=== PATIENT | female | born 1985 | race African-American/Black ===

== ENCOUNTER 2019-07-26 08:46 | Inpatient (IN) ==
[2019-07-26] MEDS ORDERED: NS 1,000 ML IV ONE (08:55)
[2019-07-26] MEDS ORDERED: ASPIRIN PO ONE (08:56)
[2019-07-26 09:26] LABS: BASO# 0.01 X1000 (0.0-0.2); BASO% 0.1 % (0.0-0.8); EOS# 0.09 X1000 (0.0-0.7); EOS% 1.1 % (0.0-10.0); HEMATOCRIT 34.5 % (37.0-47.0); HEMOGLOBIN 11.5 g/dL (12.0-16.0); LYMPH# 1.11 X1000 (1.2-3.4); LYMPH% 13.4 % (20.5-51.1); MCHC 33.3 g/dL (33-37); MCV 102.1 FL (81-99); MONO# 0.55 X1000 (0.11-0.59); MONO% 6.7 % (1.7-9.3); MPV 10.2 FL (7.4-10.4); NEUT% 78.7 % (42.2-75.2); PLT 152 X1000 (130-400); RBC 3.38 XMIL (4.2-5.4); RDW 12.6 % (11.5-14.5); WBC 8.26 X1000 (4.8-10.8)
--- NOTE | 2019-07-26 09:26 | PROVIDER DOCUMENTATION ---
HPI-General Adult - General Chief Complaint: Chest Pain Stated Complaint: Chest pain Time Seen by Provider: 07/26/19 08:59 Source: patient Allergies/Adverse Reactions: Patient Allergies Allergy/AdvReac Type Severity Reaction Status Date / Time cephalexin monohydrate * Allergy ITCHING Verified 07/26/19 09:34 [From Keflex] codeine Allergy ITCHING Verified 07/26/19 09:34 Home Medications: Home Medication List Medication Instructions Recorded Confirmed Last Taken Type Hydrocodone/Acetaminophen [[place] 1 tab PO Q8H PRN PRN 04/17/16 07/26/19 07/26/19 History 10-325 Tablet] Gabapentin 300 mg PO Q8HR 05/06/18 07/26/19 07/26/19 History Lisinopril 20 mg PO DAILY 05/06/18 07/26/19 07/26/19 History Pantoprazole Sodium 40 mg PO DAILY 05/06/18 07/26/19 07/25/19 History Cyclobenzaprine [Flexeril] 1 tab PO BID 07/26/19 07/26/19 07/24/19 History Nitrofurantoin [place]/Macrocryst 1 tab PO BID 07/26/19 07/26/19 07/26/19 History [Macrobid] Potassium Chloride E.r. [Klor-Con] 1 tab PO BID 07/26/19 07/26/19 07/25/19 History - History of Present Illness -Gen Adult Nature of Presenting Problems: Pt. is 34 yof that presents with c/o CP that began on Sun. Pt. reports nausea at time of onset and diaphoresis but not at time of exam. Pt. reports SOB upon standing. Pt. reports her lower extremities are cold feeling and she denies any other complaints. Location of Pain/Injury: reports: chest. denies: none, head, face, mouth, neck, upper extremity, hand(s), abdomen, back, pelvis, genitalia, lower extremity, feet, upper body, lower body, generalized, other Pain Radiation: reports: no radiation. denies: arm(s), back, buttocks, chest, epigastric, feet, groin, jaw, flank (L), legs (lower), LLQ, LUQ, neck, periumbilical, flank (R), RLQ, RUQ, shoulder(s), scapula, scrotal, sternal notch, suprapubic, legs (upper), urethral, vaginal, other Quality of Pain: reports: pressure, tightness. denies: aching, indigestion, throbbing Severity: reports: mild. denies: moderate, severe Onset/Duration: reports: abrupt, 3 days ago Timing: reports: still present. denies: improving, intermittent, getting worse Context/Activities at Onset: reports: none. denies: light activity, moderate activity, vigorous activity, recent emotional stress, recent physical stress, recent trauma history, possible bad food, cold exposure, eating, out of country travel, rest, sleep, sexual activity, other Modifying Factors: improves with: nothing Associated Symptoms: reports: chest pain, shortness of breath. denies: denies symptoms, anxiety, arm pain, back/neck pain, constipation, cough, diaphoresis, diarrhea, dizziness, EENT symptoms, fatigue, fever/chills, genitourinary problems, headaches, heartburn, joint pain, loss of appetite, malaise, muscle aches, sinus congestion/drainage, nausea, rash, seizure, sensory/motor loss, pain with inspiration, swelling/mass in abdomen, syncope, vomiting, weakness, trouble walking, other Similar Symptoms Previously?: Yes Recently seen or treated by another doctor?: No Review of Systems - Adult - REVIEW OF SYSTEMS - ADULT Constitutional: reports: no symptoms reported Eyes: reports: no symptoms reported Ears, Nose, Mouth & Throat: reports: no symptoms reported Cardiovascular: reports: see HPI, chest pain. denies: heart murmur, orthopnea, syncope Respiratory: reports: see HPI, shortness of breath. denies: cough, pleurisy, wheezing Gastrointestinal: reports: no symptoms reported Genitourinary: reports: no symptoms reported Musculoskeletal: reports: no symptoms reported Integumentary: reports: no symptoms reported Neurological: reports: no symptoms reported Psychiatric: reports: no symptoms reported Past History - Adult - PAST MEDICAL HISTORY-ADULT Review of Records: reports: Old Records Reviewed, Nursing Assessment Review, Medications Reviewed, Social history reviewed & non-contributory. Major Childhood Illnesses: reports: denies history Cardiovascular: reports: HTN Respiratory: reports: denies history Gastrointestinal: reports: denies history Obstetrical/Gynecological: reports: denies history Genitourinary: reports: denies history Musculoskeletal: reports: denies history Neurological: reports: denies history Endocrine/Immune: reports: denies history Other Conditions: reports: denies history - PRIOR SURGERIES/PROCEDURES Surgical/Procedure History: reports: - IMMUNIZATION STATUS Childhood Immunizations: See Nurse Assessment Flu Vaccine: See Nurse Assessment - FAMILY HISTORY Family History: HTN - SOCIAL HISTORY Smoking: denies Physical Exam-General - PHYSICAL EXAM-ADULT Initial Vital Signs Reviewed: Yes - CONSTITUTIONAL General Appearance: alert, no apparent distress, obese. negative: thin, anxious, obtunded, combative - EYES Eyes: PERRL/EOMI, pink conjunctivae - HEAD, EARS, NOSE, MOUTH & THROAT HENMT: normocephalic/atraumatic, moist mucous membranes - NECK Neck: non-tender, full range of motion, supple, normal inspection - RESPIRATORY Respiratory: lungs clear, normal breath sounds - CARDIOVASCULAR Cardiovascular: regular rate, rhythm, no edema, tachycardia. negative: friction rub, irregularly irregular - GASTROINTESTINAL (ABDOMEN) Abdominal Exam: normal bowel sounds, non tender, soft - LYMPHATIC Lymphatic: no adenopathy - MUSCULOSKELETAL Back Exam: normal inspection, no CVA tenderness, no vertebral tenderness Extremity: normal range of motion, non-tender, normal gait, normal inspection. negative: erythema, inflammation, swelling, tenderness Peripheral Pulses: radial (R): 2+, radial (L): 2+ - SKIN Integumentary: normal color, normal turgor, warm/dry - NEUROLOGIC Neurologic: grossly normal, no motor/sensory deficits - PSYCHIATRIC Psych/Mental Status: normal mood/affect, normal thought content, normal thought process, oriented x 3. negative: anxious, paranoid, tearful Progress - PLAN OF CARE/RESULTS Progress/Plan/Lab Results: Vital Signs - 8 hr 07/26/19 08:53 Temperature 98.1 F Pulse Rate 104 H Respiratory Rate 19 Blood Pressure 88/57 O2 Sat by Pulse Oximetry 89 L Orders Category Date Time Status Cardiac Monitoring DIRECTED Care 07/26/19 08:57 Active Oxygen Therapy- ED Nursing DIRECTED Care 07/26/19 08:57 Active Saline Loc NOW Care 07/26/19 08:57 Active CHEST-2 VIEWS [RAD] Stat Exams 07/26/19 08:57 Ordered ALCOHOL BLOOD Stat Lab 07/26/19 09:16 Ordered CBC WITH ELECTRONIC DIFF [HEME] Stat Lab 07/26/19 09:16 Ordered CK PROFILE [SP CHEM] Stat Lab 07/26/19 09:16 Ordered COMPREHENSIVE METABOLIC PANEL [CHEM] Stat Lab 07/26/19 09:16 Ordered D-DIMER [COAG] Stat Lab 07/26/19 09:16 Ordered LACTATE, PLASMA [CHEM] Stat Lab 07/26/19 09:22 Ordered MAGNESIUM [CHEM] Stat Lab 07/26/19 09:16 Ordered PRO B-NATRIURETIC PEPTIDE Stat Lab 07/26/19 09:16 Ordered PROTIME WITH INR [COAG] Stat Lab 07/26/19 09:16 Ordered PTT [COAG] Stat Lab 07/26/19 09:16 Ordered TROPONIN T Stat Lab 07/26/19 09:16 Ordered 0.9% Sodium Chloride Inj [Ns] 1,000 ml Med 07/26/19 08:55 Active IV 999 mls/hr Aspirin Med 07/26/19 08:56 Discontinued 325 mg PO NOW ONE CP/SOB/Palp >45 yrs of Age Stat Oth 07/26/19 08:56 Ordered EKG [EKG] Stat Ther 07/26/19 08:55 Ordered Laboratory Tests 07/26/19 07/26/19 07/26/19 09:09 09:09 09:09 WBC 8.26 RBC 3.38 L Hgb 11.5 L Hct 34.5 L MCV 102.1 H MCH 34.0 H MCHC 33.3 RDW Std Deviation 12.6 Plt Count 152 MPV 10.2 Immature Gran % (Auto) 0.0 Neut % (Auto) 78.7 H Lymph % (Auto) 13.4 L [place] % (Auto) 6.7 Eos % (Auto) 1.1 Baso % (Auto) 0.1 Immature Gran # (Auto) 0.00 Neut # (Auto) 6.50 Lymph # (Auto) 1.11 L [place] # (Auto) 0.55 Eos # (Auto) 0.09 Baso # (Auto) 0.01 PT INR PTT (Actin FS) D-Dimer, Quantitative Sodium 133 L Potassium 5.2 H Chloride 97 L Carbon Dioxide 13 L Anion Gap 23 BUN 47 H Creatinine 4.8 H Estimated GFR/1.73 m2 12 BUN/Creatinine Ratio 10 Glucose 86 Calculated Osmolality 278 Calcium 8.6 L Magnesium 1.8 Total Bilirubin 0.23 AST 154 H ALT 56 H Alkaline Phosphatase 79 Creatine Kinase 3496 H Creatine Kinase Index 1.6 CK-MB (CK-2) 56.09 H Troponin T [id number] Pept 186 H Total Protein 7.9 Albumin 4.2 Globulin 3.7 Albumin/Globulin Ratio 1.1 Plasma Lactate Plasma/Serum Ethyl Alc 07/26/19 07/26/19 07/26/19 09:09 09:09 09:09 WBC RBC Hgb Hct MCV MCH MCHC RDW Std Deviation Plt Count MPV Immature Gran % (Auto) Neut % (Auto) Lymph % (Auto) [place] % (Auto) Eos % (Auto) Baso % (Auto) Immature Gran # (Auto) Neut # (Auto) Lymph # (Auto) [place] # (Auto) Eos # (Auto) Baso # (Auto) PT 13.9 INR 1.06 PTT (Actin FS) 33.0 D-Dimer, Quantitative 1.11 H Sodium Potassium Chloride Carbon Dioxide Anion Gap BUN Creatinine Estimated GFR/1.73 m2 BUN/Creatinine Ratio Glucose Calculated Osmolality Calcium Magnesium Total Bilirubin AST ALT Alkaline Phosphatase Creatine Kinase Creatine Kinase Index CK-MB (CK-2) Troponin T 0.012 Etg-B-[id number] Pept Total Protein Albumin Globulin Albumin/Globulin Ratio Plasma Lactate Plasma/Serum Ethyl Alc 07/26/19 09:09 WBC RBC Hgb Hct MCV MCH MCHC RDW Std Deviation Plt Count MPV Immature Gran % (Auto) Neut % (Auto) Lymph % (Auto) [place] % (Auto) Eos % (Auto) Baso % (Auto) Immature Gran # (Auto) Neut # (Auto) Lymph # (Auto) [place] # (Auto) Eos # (Auto) Baso # (Auto) PT INR PTT (Actin FS) D-Dimer, Quantitative Sodium Potassium Chloride Carbon Dioxide Anion Gap BUN Creatinine Estimated GFR/1.73 m2 BUN/Creatinine Ratio Glucose Calculated Osmolality Calcium Magnesium Total Bilirubin AST ALT Alkaline Phosphatase Creatine Kinase Creatine Kinase Index CK-MB (CK-2) Troponin T [id number]-Ucwkvkevzmp Pept Total Protein Albumin Globulin Albumin/Globulin Ratio Plasma Lactate 0.9 Plasma/Serum Ethyl Alc Discussed results and plan of care with patient. Patient agrees with plan and verbalizes understanding. Result Diagrams: 07/26/19 09:09 07/26/19 09:09 - EKG 1 Time of EKG reading by physician:: 08:54 EKG Read and Signed by:: Sage Villa EKG Interpretation (*Must complete 3 of following elements*): Abnormal Rate: 104 Rhythm: ST with PAC's CO Interval: normal - XRAY 1 XRAY Study: Chest XRAY Interpretation: JULY Eric) - CONSULTS/PCP/HOSPITALIST Notification #1 *Consult/PCP/Hospitalist*: [facility] for Dr. Lawrence Time Discussed: 10:28 Reason/Comments: Admission Consult Disposition: Will see in ED, Admit Departure - Departure Date of Disposition Decision: 07/26/19 Time of Disposition Decision: 10:17 DIAGNOSIS: Elevated d-dimer, Chronic anemia Acute renal failure Qualifiers: Acute renal failure type: unspecified Qualified Code(s): N17.9 - Acute kidney failure, unspecified Rhabdomyolysis Qualifiers: Rhabdomyolysis type: non-traumatic Qualified Code(s): M62.82 - Rhabdomyolysis Disposition: ADMITTED INPATIENT 09 Certified Medical Emergency: Emergent Condition: Stable Referrals and Follow-Ups: None,PCP [Primary Care Provider] - - Critical Care Note This patient required my direct & personal management of CC.: No Attestation - Physician/ SAYDA Attestation Patient care was provided by Advanced Practice Provider:: Yes Advanced Practice Provider:: Dion Torres Advanced Practice Provider documentation review:: The Mid-level provider documentation, treatment plan and medical decision making was reviewed by the physician who agrees with all treatment and medical decision making by the P. The physician spent face to face time with patient:: No Advanced Practice Provider documentation review:: Supervising physician onsite and consulted in the evaluation and care of this patient. The physician did not have a face to face encounter with the patient.
[2019-07-26 09:35] LABS: INR 1.06; PROTIME 13.9 Seconds (11.0-16.0)
--- NOTE | 2019-07-26 09:45 | EKG Report ---
Test Performed on : 07/26/2019 08:52:45 AM Test Reason : cp Blood Pressure : / mmHG Vent. Rate : 104 BPM Atrial Rate : 104 BPM P-R Int : 152 ms QRS Dur : 084 ms QT Int : 350 ms P-R-T Axes : 052 025 032 degrees QTc Int : 460 ms Sinus tachycardia. with premature atrial complexes. Possible Left atrial enlargement Borderline ECG When compared with ECG of 10-MAY-2019 06:26, (Unconfirmed) premature atrial complexes. are now present Unconfirmed Result
[2019-07-26 09:50] LABS: ALB/GLOB RATIO 1.1; ALBUMIN 4.2 g/dL (3.5-5.0); CALCIUM 8.6 mg/dL (8.8-10.2); CREATININE 4.8 mg/dL (0.5-0.9); MAGNESIUM 1.8 mg/dL (1.5-2.7); POTASSIUM 5.2 mmol/L (3.5-5.1); TOTAL BILIRUBIN 0.23 mg/dL (0.20-1.00); TOTAL PROTEIN 7.9 g/dL (6.3-8.3)
[2019-07-26 10:13] LABS: CK INDEX 1.6 (0.0-2.5); CK-MB 56.09 ng/mL (0.0-5.0)
[2019-07-26 10:22] LABS: URINE SOURCE CATH
[2019-07-26 10:40] LABS: BILIRUBIN URINE NEGATIVE (NEGATIVE); BLOOD URINE MODERATE (NEGATIVE); COLOR YELLOW; GLUCOSE URINE NEGATIVE (NEGATIVE); KETONE URINE NEGATIVE (NEGATIVE); LEUKOCYTES URINE SMALL (NEGATIVE); NITRITE URINE NEGATIVE (NEGATIVE); PH URINE 5.5; PROTEIN URINE 100 mg/dL (NEGATIVE); SP GRAVITY URINE 1.026; TURBIDITY URINE HAZY (CLEAR); UROBILINOGEN URINE NORMAL (NORMAL)
[2019-07-26 10:41] LABS: UR EPITHELIAL CELLS <10 /HPF (<10); URINE BACTERIA NEGATIVE /HPF; URINE WBC <10 /HPF (<10)
[2019-07-26] MEDS ORDERED: NORCO-7.5 PO PRN (11:23)
[2019-07-26] MEDS ORDERED: ZOFRAN IV PRN (11:23)
[2019-07-26] MEDS ORDERED: TYLENOL PO PRN (11:23)
[2019-07-26] MEDS ORDERED: LEVAQUIN 500 MG/D5W 500 MG/100 ML IVPB IV ONE (11:35)
--- NOTE | 2019-07-26 11:36 | Diag Imaging Result Doc PS360 ---
EXAM: CHEST-2 VIEWS INDICATION: cp TECHNIQUE: 2 views COMPARISON: 05/09/2019 FINDINGS: There is stable scoliosis. The lungs are grossly clear. There is no discrete pleural fluid collection or pneumothorax. The cardiomediastinal silhouette and central vasculature are grossly unremarkable. IMPRESSION: No evidence of acute pathology by plain radiograph. Electronically signed by Berto Jackson 07/26/2019 11:34 AM
[2019-07-26] MEDS: HEPARIN SUBQ SCH ×2 (12:24→19:55)
[2019-07-26] MEDS: NICODERM PATCH TD SCH (12:24)
[2019-07-26] MEDS: NS 1,000 ML IV SCH ×2 (12:24→19:55)
[2019-07-26 12:35] LABS: UR AMPHETAMINES QUAL NONE DETECTED (NONE DETECT); UR BARBITUATES QUAL NONE DETECTED (NONE DETECT); UR BENZODIAZEPIN QUAL NONE DETECTED (NONE DETECT); UR CANNABINOIDS QUAL NONE DETECTED (NONE DETECT); UR COCAINE QUAL NONE DETECTED (NONE DETECT); UR METHADONE QUAL NONE DETECTED (NONE DETECT); UR OPIATES QUAL PRESUMPTIVE POSITIVE (NONE DETECT); UR OXYCODONE QUAL NONE DETECTED (NONE DETECT); UR PCP QUAL NONE DETECTED (NONE DETECT)
[2019-07-26 12:40] LABS: UR CREAT RANDOM 157.5 mg/dL (11-20); UR PROT RANDOM 145.7 mg/dL
[2019-07-26] MEDS ORDERED: NEURONTIN PO SCH (13:00)
[2019-07-26] MEDS ORDERED: ATIVAN IV PRN (13:28)
[2019-07-26 13:56] LABS: URINE SOURCE CATH
--- NOTE | 2019-07-26 14:07 | Diag Imaging Result Doc PS360 ---
EXAM: US RENAL 2 (RETROPER) COMPLETE INDICATION: Acute Renal Failure TECHNIQUE: COMPARISON: None. FINDINGS: The kidneys are grossly normal in echotexture with no discrete renal mass or hydronephrosis. The right kidney measures 13.4 cm and the left kidney measures 13.5 cm in the greatest longitudinal axes. The right renal cortex measures 1.1 cm and the left renal cortex measures 1.0 cm in thickness. There is a Burden catheter in the urinary bladder and the bladder is nondistended. IMPRESSION: Unremarkable renal ultrasound. Electronically signed by Berto Jackson 07/26/2019 2:05 PM
[2019-07-26 14:09] LABS: BILIRUBIN URINE NEGATIVE (NEGATIVE); BLOOD URINE LARGE (NEGATIVE); COLOR YELLOW; GLUCOSE URINE NEGATIVE (NEGATIVE); KETONE URINE NEGATIVE (NEGATIVE); LEUKOCYTES URINE TRACE (NEGATIVE); NITRITE URINE NEGATIVE (NEGATIVE); PH URINE 5.5; PROTEIN URINE 100 mg/dL (NEGATIVE); SP GRAVITY URINE 1.024; TURBIDITY URINE CLEAR (CLEAR); UROBILINOGEN URINE NORMAL (NORMAL)
[2019-07-26 14:11] LABS: UR EPITHELIAL CELLS <10 /HPF (<10); URINE BACTERIA NEGATIVE /HPF; URINE WBC <10 /HPF (<10)
--- NOTE | 2019-07-26 15:05 | Diag Imaging Result Doc PS360 ---
EXAM: LUNG SCAN / VQ INDICATION: SOB/elevated d-dimer TECHNIQUE: 36.6 mCi of aerosolized technetium 99 DTPA was administered for the ventilation portion of the scan. 5.3 mCi of IV technetium 99 MAA was administered for the perfusion portion of the scan. COMPARISON: No prior V/Q scan is available for comparison. FINDINGS: There is no definite matched or unmatched perfusion defects are identified. The ventilation portion of the scan is unremarkable as well. IMPRESSION: Negative VQ scan. Electronically signed by Berto Jackson 07/26/2019 3:03 PM
--- NOTE | 2019-07-26 15:37 | HISTORY AND PHYSICAL ---
PRIMARY CARE PHYSICIAN: Dr. Jalen Wu. CHIEF COMPLAINT: Lower back pain and unable to walk. HISTORY OF PRESENT ILLNESS: Ms. Rooney is a 34-year-old female who states that about 1 to 2 months ago, she noticed that she was having difficulty going to the restroom. She stated this has persisted over the past few months where it has become worse and worse. She started having some pain in her lower back. She went to go see her tenter, Dr. Wu who is in [place] I believe. This was on Sunday. He diagnosed her with an acute UTI, started her on nitrofurantoin. She stated that she started taking her medication. She has been unable to get out of the bed since Sunday. She has been having to crawl to go to the bathroom or to go anywhere. She has not been using the bathroom very much. She has only been drinking about 3 glasses of water a day. The patient does report some nausea with this pain. Denies any significant chest pain; however, looking at the ER report, the patient was having some chest pain on arrival to the ER. The patient also states she was having some shortness of breath when standing when she arrived to the ER. She is not having shortness of breath at this present time. The patient denies any fevers or chills, any headaches, any decreased appetite, any problem with her bowels, any vomiting, any blood in her stools, any constipation or diarrhea. LABORATORY FINDINGS: In the ER show a hemoglobin of 11.5 and hematocrit of 34.5. D-dimer of 1.11. Sodium of 133, potassium of 5.2. BUN of 47, a creatinine of 4.8, GFR of 12, creatine kinase of 3496, CK-MB of 56.09. PAST MEDICAL HISTORY: Hypertension, smoking, alcohol abuse. PAST SURGICAL HISTORY: x3. SOCIAL HISTORY: Patient lives with her sister in [place]. She is unemployed. States she smokes a half pack of cigarettes per day for greater than 15 years. The patient states she drinks about a 5th of alcohol daily. States she has not drink alcohol since Sunday. She denies any drug abuse. ALLERGIES: Codeine and Keflex. MEDICATIONS: 1. [place] 10/325 one tablet p.o. q.8 hours p.r.n. 2. Lisinopril 20 mg p.o. daily. 3. Protonix 40 mg p.o. daily. 4. Gabapentin 300 mg p.o. q.8 hours. 5. Macrobid 100 mg p.o. b.i.d. 6. Klor-Con 20 mEq 2 tablets in the a.m., 1 tab q.p.m. 7. Flexeril 10 mg p.o. b.i.d. LABS AND DIAGNOSTICS: White blood cell count 8.26, red blood cell count 3.38, hemoglobin 11.5, hematocrit 34.5, MCV 102.1, MCH 34, MCHC 33.3, RDW of 12.6, platelet count 152,000. PT 13.9, INR 1.06, PTT 33.0. D-dimer 1.11. Sodium 133, potassium 5.2, chloride 97, carbon dioxide 13, anion gap 23, BUN is 47, creatinine 4.8, estimated GFR 12, glucose 86, calcium 8.6, magnesium 1.8. Total bilirubin 0.23, AST 154, ALT 56, alkaline phosphatase 79. Creatine kinase 3496. Creatine kinase index 1.6. CK-MB 56.09. Troponin T 0.012. ProBNP 186. Total protein 7.9, albumin 4.2. Plasma lactate 0.9. Urinalysis pH 5.5, urine specific gravity 1.026, urine protein 100, positive for blood, a small amount of leukocytes, red blood cell count 10 to 20, white blood cell count less than 10, negative for bacteria, negative for nitrates. Plasma alcohol level negative. Chest x-ray shows no evidence of acute pathology. REVIEW OF SYSTEMS: A twelve point review of systems was obtained and all are negative except what is stated above in the HPI. PHYSICAL EXAMINATION: VITAL SIGNS: Temperature 98.1 degrees, pulse rate 103, respiratory rate 18, blood pressure 88/50, O2 saturation 100 on room air, weight 206 pounds, height 5 feet 4 inches. GENERAL: This is a 34-year-old female. She is lying in the ER stretcher. She is in no acute distress at present time. She is well nourished and well developed. HEENT: Atraumatic, normocephalic. Pupils equal, round, reactive to light. Sclerae icteric. Mucous membranes are dry. NECK: Supple. No lymphadenopathy. Trachea is midline. No JVD. No thyromegaly. No bruits. CV: No murmurs, gallops, or rubs appreciated. Regular rate and rhythm. Normal sinus tach on the monitor. RESPIRATORY: Lung sounds are clear throughout with equal chest excursion. Respirations are nonlabored with no accessory muscle usage. GI: Abdomen is round, nondistended, is nontender. Bowel sounds are present x4. NEUROLOGIC: Cranial nerves 2-12 are intact. The patient is awake, alert, oriented, able to follow all commands appropriately. MUSCULOSKELETAL: Full distal strength noted. No abnormalities or deformities. EXTREMITIES: No clubbing, no cyanosis, no edema. DP and PT pulses are present and palpable. SKIN: Warm, dry, and intact. No rashes or bruises. There is a very small pink area noted to the left breast by the areola. The patient stated that it was a blackhead that she popped. The area is closed. Has a scabbed area noted over the pink area. It is not draining. ASSESSMENT AND PLAN: 1. Acute renal failure. We are going to admit this patient to the ICU unit. We are going to start this patient on IV fluid hydration. She was given 1 L bolus in the ER. We are going to give her normal saline at 125 mL an hour. We will recheck all her labs in the morning. We are going to do a renal ultrasound and urine creatinine, urine protein, urine sodium studies. 2. Rhabdomyolysis. We will start this patient on IV fluid hydration and repeat labs in the morning. We are also going to trend CK and troponin levels. The patient was given a 1 L bolus in the ER. 3. Urinary tract infection. We have sent a urine off for culture. The patient was on nitrofurantoin at home. We are starting this patient on Levaquin per renal dose. Going to go ahead and place a Burden catheter in the patient. The patient has been able to void very much. Likely this is due to her acute renal failure and dehydration. We are going to give this patient IV fluid hydration and start her on some IV antibiotics. We will remove the Burden catheter once the patient is urinating better. 4. ETOH abuse. I have started this patient on a banana bag daily, and I placed in the ICU unit for observation. The patient states she is not drank since Sunday. Do not know if the patient will have withdrawal symptoms. We will start this patient on medication if she does start having withdrawal symptoms. 5. Nicotine dependency. The patient states she does smoke half a pack of cigarettes per day greater than 15 years. I have started her on a nicotine patch and provided smoking cessation information. 6. Hypertension. The patient does take lisinopril at home. Right now she is dehydrated and she is having some hypotension. We are going to hold off on any blood pressure medication at this time and hold off on her lisinopril because of her acute renal function failure. 7. Chronic pain. The patient does take Avoca at home for her back pain and Flexeril. I am going to hold off on her Flexeril and Avoca. I have started her on Morphine for pain. 8. Gastrointestinal prophylaxis. I have started her on some Prilosec daily. 9. Deep venous thrombosis prophylaxis. The patient did have a slightly elevated D-dimer. We are going to do a V/Q lung scan on her to rule her out for PE. She is not short of breath at this time. She does not have any edema to her lower extremities. I have started her on heparin subcutaneous q.8 hours per protocol. This should cover for DVT prophylaxis. If she does have a PE, we will start her on a heparin drip. We have admitted this patient to the ICU unit as above. We started her on IV fluid hydration. We have started her on a banana bag daily. We will monitor her for withdrawal symptoms in the ICU. If need to we will start her on some medication for that. We are also going to give her some IV antibiotics for her urinary tract infection. She has a urine culture pending. I have ordered blood cultures. We are going to repeat her labs in the morning. We are also going to trend her CK and troponins. I am going to place a Burden in her and I have started her on a renal diet. We will observe her closely. All further recommendations pending hospital coarse. Dictated by DONOVAN Heart for Juan Head MD cc: Juan Head MD [facility]
[2019-07-26] MEDS: MORPHINE IV PRN ×2 (16:10→22:41)
[2019-07-26 18:07] LABS: ALB/GLOB RATIO 0.9; ALBUMIN 3.7 g/dL (3.5-5.0); CALCIUM 8.3 mg/dL (8.8-10.2); CREATININE 3.8 mg/dL (0.5-0.9); POTASSIUM 4.1 mmol/L (3.5-5.1); TOTAL BILIRUBIN 0.22 mg/dL (0.20-1.00); TOTAL PROTEIN 7.7 g/dL (6.3-8.3)
[2019-07-26 18:15] LABS: CK INDEX 1.3 (0.0-2.5); CK-MB 39.1 ng/mL (0.0-5.0)
[2019-07-27 01:35] LABS: CK INDEX 1.3 (0.0-2.5); CK-MB 26.35 ng/mL (0.0-5.0)
[2019-07-27] MEDS: MORPHINE IV PRN ×4 (03:41→20:07)
[2019-07-27] MEDS: HEPARIN SUBQ SCH ×2 (03:41→15:43)
[2019-07-27] MEDS: NS 1,000 ML IV SCH ×4 (03:46→23:23)
--- NOTE | 2019-07-27 08:05 | PROGRESS NOTE ---
DATE: 07/27/2019 SUBJECTIVE: The patient is sleepy but arousable. She is oriented. She is complaining of poor sensation, mostly in her lower extremities, left lower extremity mostly. She was recently evaluated by her doctor and she was started on treatment for a UTI with nitrofurantoin. Apparently, she has not been able to get out of bed for the past 3 days and having to crawl to go to the bathroom or to go anywhere, decreased urine output. She was admitted in the ICU. She does have an acute renal failure, rhabdomyolysis. She has a history of alcohol abuse, tobacco abuse, hypertension, chronic pain. OBJECTIVE: Vital Signs: Temperature 98.4 degrees, pulse 107, respiratory rate 15, blood pressure 81/39, oxygen saturation 100% on room air. HEENT: Head normocephalic. No trauma. PERRLA. Neck: Supple. No JVD. Central trachea. Chest: Clear to auscultation. No wheezing. No rales. Abdomen: Soft. Some generalized tenderness to palpation, mostly periumbilical area. Extremities: It is really painful at the level of the thighs and she is complaining of some burning sensation mostly in her left lower extremity, which is apparently chronic. Neurological Examination: She is alert. She is oriented x3. She is tolerating p.o. and following commands. Laboratory: CK level decreased from 3496 to 2851 and at midnight, was around 1981, lab work is pending but the creatinine recheck yesterday improved from 4.8 at 9 a.m. to 3.8 at 5 p.m. Urine output has been good. It is reported 2.1 L in the past 24 hours. ASSESSMENT AND PLAN: 1. Acute renal failure. Continue with intravenous fluids. Continue to monitor the BUN and creatinine. Pending lab work this morning. She seems to be making good urine and the creatinine has been decreasing. 2. Rhabdomyolysis. Continue with intravenous fluids. CK level trending down. 3. Urinary tract infection. Negative cultures so far. Continue with Levaquin renally dosed. 4. Volume depletion, severe dehydration. She seems to be a little bit better right now. Continue with intravenous fluids. 5. Alcohol abuse. We have started this patient on a banana bag daily. Intensive care unit for observation. As per the patient, she stopped drinking last Sunday. She took a pint of vodka. We will monitor for withdrawal symptoms. 6. Hypertension. Actually, this patient has been hypotensive due during this hospitalization. When she is sleeping, the blood pressure dropped to the 80s and sometimes 70s but when she is awake, her blood pressure goes up to the 100s immediately. Since her kidney function is getting better and she is not having symptoms of hypotension, I will monitor for now. I will go and use pressors as needed. 7. Chronic pain. Apparently, this patient takes [place] at home as needed. 8. Peripheral neuropathy. This patient takes gabapentin at home as well. All those medication have been on hold. 9. Gastrointestinal prophylaxis. Prilosec daily. 10. Deep vein thrombosis prophylaxis. She had a slightly elevated D-dimer. V/Q scan has been negative. She does not have any swelling at the level of the lower extremities. I will go with heparin every 12 hours. I will not use sequential compression devices because of her severe pain upon palpation at the level of the lower extremities. 11. Elevated liver function tests, trending down, likely due to severe dehydration but this could be multifactorial. She has a history of alcohol abuse. CRITICAL CARE TIME: 30 minutes. cc: Juan Head MD MTDD
[2019-07-27 08:15] LABS: EOS# 0.07 X1000 (0.0-0.7); EOS% 1.5 % (0.0-10.0); HEMATOCRIT 31.1 % (37.0-47.0); HEMOGLOBIN 10.2 g/dL (12.0-16.0); LYMPH# 0.89 X1000 (1.2-3.4); LYMPH% 19.5 % (20.5-51.1); MCH 34.1 PG (27-31); MCHC 32.8 g/dL (33-37); MONO# 0.45 X1000 (0.11-0.59); MONO% 9.9 % (1.7-9.3); NEUT# 3.15 X1000 (1.4-6.5); NEUT% 69.1 % (42.2-75.2); PLT 171 X1000 (130-400); RBC 2.99 XMIL (4.2-5.4); RDW 12.6 % (11.5-14.5); WBC 4.56 X1000 (4.8-10.8)
[2019-07-27] MEDS: PRILOSEC PO SCH (08:22)
[2019-07-27] MEDS: NICODERM PATCH TD SCH (08:22)
[2019-07-27] MEDS: FLEXERIL PO SCH ×2 (08:22→20:07)
[2019-07-27 08:45] LABS: ALB/GLOB RATIO 0.9; ALBUMIN 3.5 g/dL (3.5-5.0); CALCIUM 7.5 mg/dL (8.8-10.2); CREATININE 1.3 mg/dL (0.5-0.9); MAGNESIUM 1.6 mg/dL (1.5-2.7); POTASSIUM 4.6 mmol/L (3.5-5.1); TOTAL BILIRUBIN 0.23 mg/dL (0.20-1.00); TOTAL PROTEIN 7.2 g/dL (6.3-8.3)
--- NOTE | 2019-07-27 08:46 | Diag Imaging Result Doc PS360 ---
EXAM: CHEST-PORTABLE INDICATION: dyspnea TECHNIQUE: One view COMPARISON: 07/26/2019 FINDINGS: Inspiration is suboptimal. The lungs are grossly clear. There is no discrete pleural fluid collection or pneumothorax. The cardiomediastinal silhouette and central vasculature are grossly unremarkable. IMPRESSION: Lower lung volumes but stable chest, otherwise. Electronically signed by Berto Jackson 07/27/2019 8:43 AM
[2019-07-27 08:50] LABS: IRON SATURATION 31 %; TIBC 226 ug/dL; TOTAL IRON 70 ug/dL (49-151); UNBOUND IRON 156 ug/dL (112-346)
[2019-07-27] MEDS ORDERED: M.V.I.-12 10 ML, FOLIC ACID 1 MG, MAGNESIUM SULFATE 1 GM, THIAMINE 100 MG in NS 1,000 ML IV SCH (09:00)
[2019-07-27 10:44] LABS: CK INDEX 1.1 (0.0-2.5); CK-MB 16.92 ng/mL (0.0-5.0)
[2019-07-28] MEDS: MORPHINE IV PRN ×3 (00:52→12:17)
[2019-07-28] MEDS: HEPARIN SUBQ SCH ×2 (04:33→15:44)
[2019-07-28] MEDS: NS 1,000 ML IV SCH ×3 (04:34→21:29)
[2019-07-28 06:36] LABS: BASO# 0.01 X1000 (0.0-0.2); BASO% 0.3 % (0.0-0.8); EOS# 0.07 X1000 (0.0-0.7); EOS% 1.9 % (0.0-10.0); HEMOGLOBIN 9.9 g/dL (12.0-16.0); LYMPH# 0.92 X1000 (1.2-3.4); LYMPH% 24.9 % (20.5-51.1); MCH 33.7 PG (27-31); MONO# 0.35 X1000 (0.11-0.59); MONO% 9.5 % (1.7-9.3); MPV 9.7 FL (7.4-10.4); NEUT# 2.34 X1000 (1.4-6.5); NEUT% 63.4 % (42.2-75.2); PLT 223 X1000 (130-400); RBC 2.94 XMIL (4.2-5.4); RDW 12.2 % (11.5-14.5); WBC 3.69 X1000 (4.8-10.8)
[2019-07-28 06:47] LABS: AGAP 10; ALB/GLOB RATIO 0.9; ALBUMIN 3.4 g/dL (3.5-5.0); ALKALINE PHOSPHATASE 70 U/L (32-104); BUN 17 mg/dL (8-22); CALCIUM 8.1 mg/dL (8.8-10.2); CHLORIDE 110 mmol/L (98-107); CK PROFILE 743 U/L (24-173); COSMO 272; CREATININE 0.5 mg/dL (0.5-0.9); ESTIMATED GFR > 60; GLUCOSE 79 mg/dL (70-104); GOT 96 U/L (10-30); GPT 40 U/L (10-36); MAGNESIUM 1.4 mg/dL (1.5-2.7); PHOSPHORUS 1.3 mg/dL (2.7-4.5); POTASSIUM 4.4 mmol/L (3.5-5.1); SODIUM 136 mmol/L (136-145); TCO2 16 mmol/L (25-35); TOTAL BILIRUBIN 0.26 mg/dL (0.20-1.00); TOTAL PROTEIN 7.2 g/dL (6.3-8.3)
--- NOTE | 2019-07-28 07:02 | PROGRESS NOTE ---
DATE: 07/28/2019 SUBJECTIVE: This patient is resting comfortably in bed. As per the patient, she is feeling better. She has been having good urine output. I will remove the Burden catheter. Vital signs are stable, as well as her hemoglobin. Folic acid is low, so I will start this patient on a folic acid treatment. CK level trending down, as well as BUN and creatinine. Pending lab work today. OBJECTIVE: Vital Signs: Temperature 98.2, pulse 90, respiratory rate 15, blood pressure 129/73, oxygen saturation 100% on room air. HEENT: Head normocephalic. No trauma. PERRLA. Neck: Supple. No JVD. No masses. Central trachea. Chest: Clear to auscultation. No wheezing. No rales. Abdomen: Soft. Generalized tenderness to palpation, mostly periumbilical area. Extremities: She is painful to palpation at the level of the thigh, tight, and she is complaining of some burning sensation, mostly on the left lower extremity, which is apparently chronic. Neurological: Alert and oriented x3. She is tolerating p.o. and following commands. LABORATORY DATA: WBC 3.6, hemoglobin 9.9, hematocrit 30, platelet count 223,000. Pending CMP. ASSESSMENT AND PLAN: 1. Acute renal failure. This is getting better. Continue with intravenous fluids. 2. Rhabdomyolysis. Continue with intravenous fluids. CK level trending down. She is feeling better. 3. Apparent urinary tract infection. Negative cultures so far. Continue with Levaquin. 4. Volume depletion, severe dehydration. She seems to be euvolemic at this moment. 5. Alcohol abuse. I have started this patient on banana bag daily. Continue to monitor this patient closely. Apparently, she stopped drinking last Sunday, and she took a pint of vodka. Will monitor for withdrawal symptoms. 6. Hypertension. Blood pressure seems to be better. Actually, when she was admitted, she was hypotensive. 7. Chronic pain. Apparently, this patient takes [place] at home as needed. For now, I will hold this because of her elevated liver function tests. 8. Peripheral neuropathy. She takes gabapentin at home as well. 9. Gastrointestinal prophylaxis with Prilosec daily. 10. Deep vein thrombosis prophylaxis. Continue with heparin subcutaneously. 11. Elevated liver function tests, trending down, likely due to severe dehydration, but this could be multifactorial given her history of alcohol abuse. She seems to be getting better. I will transfer this patient to the medical floor. I will decrease today, the rate of the intravenous fluids. Overall, this patient is doing better. I will transfer this patient to the floor, and I will continue to monitor. cc: Juan Head MD
[2019-07-28 07:07] LABS: FREE T4 0.75 ng/dL (0.93-1.70); TSH 0.17 uIUmL (0.27-4.20)
[2019-07-28 07:37] LABS: CK-MB 7.66 ng/mL (0.0-5.0)
[2019-07-28] MEDS: FLEXERIL PO SCH ×2 (08:42→21:29)
[2019-07-28] MEDS: M.V.I.-12 10 ML, FOLIC ACID 1 MG, MAGNESIUM SULFATE 1 GM, THIAMINE 100 MG in NS 1,000 ML IV SCH (08:42)
[2019-07-28] MEDS: PRILOSEC PO SCH (08:42)
[2019-07-28] MEDS: NICODERM PATCH TD SCH (08:42)
[2019-07-28] MEDS ORDERED: LEVAQUIN 250 MG/D5W 250 MG/50 ML IVPB IV SCH (11:45)
[2019-07-28] MEDS ORDERED: MAGNESIUM SULFATE 2 GM/S.W.I. 2 GM/50 ML IVPB IV ONE (15:14)
[2019-07-28] MEDS ORDERED: SODIUM PHOSPHATE 21 MMOL in NS 250 ML IV ONE (15:18)
[2019-07-28] MEDS ORDERED: APRESOLINE IV PRN (15:34)
[2019-07-29] MEDS: HEPARIN SUBQ SCH (05:05)
[2019-07-29 06:55] LABS: BASO# 0.01 X1000 (0.0-0.2); BASO% 0.3 % (0.0-0.8); EOS# 0.04 X1000 (0.0-0.7); EOS% 1.2 % (0.0-10.0); HEMATOCRIT 28.9 % (37.0-47.0); LYMPH# 0.96 X1000 (1.2-3.4); MCHC 34.6 g/dL (33-37); MONO% 17.5 % (1.7-9.3); MPV 9.4 FL (7.4-10.4); NEUT# 1.82 X1000 (1.4-6.5); PLT 266 X1000 (130-400); RBC 2.86 XMIL (4.2-5.4); RDW 12.2 % (11.5-14.5); WBC 3.43 X1000 (4.8-10.8)
[2019-07-29 07:09] LABS: AGAP 14; ALB/GLOB RATIO 0.8; ALBUMIN 3.1 g/dL (3.5-5.0); ALKALINE PHOSPHATASE 67 U/L (32-104); BUN 6 mg/dL (8-22); CALCIUM 8.3 mg/dL (8.8-10.2); CHLORIDE 109 mmol/L (98-107); CK PROFILE 324 U/L (24-173); COSMO 273; CREATININE 0.4 mg/dL (0.5-0.9); ESTIMATED GFR > 60; GLUCOSE 87 mg/dL (70-104); GOT 122 U/L (10-30); GPT 56 U/L (10-36); MAGNESIUM 1.4 mg/dL (1.5-2.7); PHOSPHORUS 1.7 mg/dL (2.7-4.5); POTASSIUM 4.2 mmol/L (3.5-5.1); SODIUM 138 mmol/L (136-145); TCO2 15 mmol/L (25-35); TOTAL BILIRUBIN 0.22 mg/dL (0.20-1.00)
[2019-07-29 07:29] LABS: CK INDEX 1.2 (0.0-2.5); CK-MB 3.79 ng/mL (0.0-5.0)
[2019-07-29] MEDS: M.V.I.-12 10 ML, FOLIC ACID 1 MG, MAGNESIUM SULFATE 1 GM, THIAMINE 100 MG in NS 1,000 ML IV SCH ×2 (07:50→11:04)
[2019-07-29] MEDS ORDERED: MAGNESIUM SULFATE 2 GM/S.W.I. 2 GM/50 ML IVPB IV ONE (10:42)
[2019-07-29] MEDS: PRILOSEC PO SCH (10:44)
[2019-07-29] MEDS: NICODERM PATCH TD SCH (10:44)
[2019-07-29] MEDS: FLEXERIL PO SCH (10:44)
[2019-07-29] MEDS: NS 1,000 ML IV SCH (10:50)
[2019-07-29] MEDS ORDERED: LEVAQUIN PO SCH (11:00)
[2019-07-29 11:17] VITALS: BP 166/107
--- NOTE | 2019-07-30 11:18 | DISCHARGE SUMMARY ---
ADMISSION DATE: 07/26/2019 DISCHARGE DATE: 07/29/2019 CONSULTATIONS: None. PERTINENT PROCEDURES: V/Q scan negative. Renal ultrasound unremarkable. DISCHARGE DIAGNOSES: 1. Acute renal failure, completely resolved. 2. Rhabdomyolysis. CK has been trending down. The patient is feeling better. 3. Apparent urinary tract infection. Negative cultures. The patient was on Levaquin. Discharged home on Levaquin. 4. Fluid volume depletion, severe dehydration, completely resolved. 5. Alcohol abuse. The patient was on a daily banana bag. The patient had quit drinking last Sunday with no signs of withdrawal. 6. Hypertension. Blood pressure is stable. 7. Chronic pain. The patient takes as needed [place] at home. Those were held off during her admission secondary to elevated liver function tests. 8. Peripheral neuropathy. The patient takes gabapentin at home. 9. Transaminitis secondary to severe dehydration as well as secondary to alcoholism. They have somewhat improved with hydration. HOSPITAL COURSE: Briefly, Ms. Rooney is a 34-year-old female who carries a past medical history of hypertension, tobacco abuse, and alcohol abuse. The patient reported that over the last 1 to 2 months, she noticed difficulty going to the restroom. It continued to persist and worsen. She was reporting pain in her lower back. She went to see her primary care provider, Dr. Gongora, in the [place] area. She was diagnosed with an acute UTI and placed on Macrodantin, and since starting that medication, she had been able to get out of bed. She reported having to crawl to the restroom or to go anywhere. Workup in the ED revealed acute renal failure, rhabdomyolysis, urinary tract infection, as well as volume depletion and severe dehydration. She was admitted to the hospital, aggressively rehydrated. Her acute renal failure has improved, as well as her rhabdomyolysis. The patient is finally feeling better and able to move around. She was educated on alcohol abstinence and to watch for any withdrawal signs. She does have elevated liver function tests. However, they have trended down, likely multifactorial secondary to severe dehydration as well as her alcohol abuse. She was making urine. Her Burden catheter was taken out. She continued to make urine, and she will be discharged back home. DISCHARGE VITAL SIGNS: Temperature was 98.1 degrees, heart rate 69, respirations 16, blood pressure 166/107, O2 saturation 100% on room air. DISCHARGE DIET: Renal. DISCHARGE MEDICATIONS: 1. Flexeril 10 mg p.o. b.i.d. 2. Protonix 40 mg p.o. daily. 3. Levaquin 500 mg p.o. daily for 3 days. 4. Norvasc 5 mg p.o. daily. FOLLOWUP: Ms. Rooney is being discharged back home with self-care. She is to continue to follow up with her primary care physician. She has been educated to stay hydrated, take all medications as appropriate, continue with alcohol and tobacco abstinence. She can return to the ED or call 911 for any worsening of symptoms. Dictated by DONOVAN Vazquez for Juan Head MD cc: Juan Head MD
== END 2019-07-29 13:00 | disposition home or self-care (01) | DRG 683 ==
LOC: ED 08:46 → ICU 12:16 → 4N 07-28 18:06
PROVIDERS: ATTEND Internal Medicine

== ENCOUNTER 2019-11-16 17:22 | Inpatient (IN) ==
--- NOTE | 2019-11-16 17:37 | EKG Report ---
Test Performed on : 11/16/2019 5:36:26 PM Test Reason : CP Blood Pressure : / mmHG Vent. Rate : 110 BPM Atrial Rate : 110 BPM P-R Int : 138 ms QRS Dur : 084 ms QT Int : 350 ms P-R-T Axes : 055 024 051 degrees QTc Int : 473 ms Sinus tachycardia. with premature atrial complexes. Otherwise normal ECG When compared with ECG of 26-JUL-2019 08:52, No significant change was found Unconfirmed Result
[2019-11-16] MEDS ORDERED: NS 1,000 ML IV ONE ×3 (18:26→21:23)
[2019-11-16 18:41] LABS: URINE SOURCE CLEAN CATCH
--- NOTE | 2019-11-16 18:48 | Diag Imaging Result Doc PS360 ---
EXAM: CT HEAD W/O CONTRAST 11/16/2019 HISTORY: stroke like symptoms TECHNIQUE: This exam was performed using automated exposure control, adjustment of mA or kV according to patient size, and/or use of iterative reconstruction technique. COMMENT: There is no evidence of mass effect, bleed, or abnormal extra-axial fluid collection. The calvarium is intact. The visualized paranasal sinuses are clear. Compared to 11/14/2014 there has been no significant change in the appearance of the brain. IMPRESSION: No evidence of acute intracranial disease. Electronically signed by Porter Joseph 11/16/2019 6:46 PM
[2019-11-16 18:49] LABS: BILIRUBIN URINE NEGATIVE (NEGATIVE); BLOOD URINE TRACE (NEGATIVE); COLOR YELLOW; GLUCOSE URINE NEGATIVE (NEGATIVE); KETONE URINE NEGATIVE (NEGATIVE); LEUKOCYTES URINE MODERATE (NEGATIVE); NITRITE URINE NEGATIVE (NEGATIVE); PH URINE 5.5; PROTEIN URINE 200 mg/dL (NEGATIVE); SP GRAVITY URINE 1.026; TURBIDITY URINE HAZY (CLEAR); UROBILINOGEN URINE 2 mg/dL (NORMAL)
--- NOTE | 2019-11-16 18:49 | Diag Imaging Result Doc PS360 ---
EXAM: CHEST-PORTABLE 11/16/2019 HISTORY: syncope TECHNIQUE: AP portable upright at 1844 COMMENT: There is curvature of the thoracic spine with convexity to the right. The inspiration is better than on 07/27/2019, otherwise are has been no significant change in the appearance of the chest. The heart size and pulmonary vascularity are within normal limits and the lungs are clear. IMPRESSION: No acute disease. Electronically signed by Porter Joseph 11/16/2019 6:47 PM
[2019-11-16 18:50] LABS: UR EPITHELIAL CELLS <10 /HPF (<10); URINE BACTERIA NEGATIVE /HPF; URINE RBC <10 /HPF (<10); URINE WBC 20-40 /HPF (<10)
[2019-11-16 19:08] LABS: UR AMPHETAMINES QUAL NONE DETECTED (NONE DETECT); UR BARBITUATES QUAL NONE DETECTED (NONE DETECT); UR BENZODIAZEPIN QUAL NONE DETECTED (NONE DETECT); UR CANNABINOIDS QUAL NONE DETECTED (NONE DETECT); UR COCAINE QUAL NONE DETECTED (NONE DETECT); UR METHADONE QUAL NONE DETECTED (NONE DETECT); UR OPIATES QUAL PRESUMPTIVE POSITIVE (NONE DETECT); UR OXYCODONE QUAL NONE DETECTED (NONE DETECT); UR PCP QUAL NONE DETECTED (NONE DETECT)
[2019-11-16 19:10] LABS: BASO# 0.01 X1000 (0.0-0.2); BASO% 0.2 % (0.0-0.8); EOS# 0.02 X1000 (0.0-0.7); EOS% 0.4 % (0.0-10.0); HEMATOCRIT 39.2 % (37.0-47.0); HEMOGLOBIN 13.2 g/dL (12.0-16.0); LYMPH# 1.22 X1000 (1.2-3.4); MCH 34.5 PG (27-31); MCHC 33.7 g/dL (33-37); MCV 102.3 FL (81-99); MONO% 5.4 % (1.7-9.3); MPV 10.7 FL (7.4-10.4); NEUT# 3.99 X1000 (1.4-6.5); PLT 136 X1000 (130-400); RBC 3.83 XMIL (4.2-5.4); RDW 13.4 % (11.5-14.5); WBC 5.54 X1000 (4.8-10.8)
[2019-11-16 19:21] LABS: ALB/GLOB RATIO 1.2; ALBUMIN 4.8 g/dL (3.5-5.0); CALCIUM 9.9 mg/dL (8.8-10.2); POTASSIUM 3.9 mmol/L (3.5-5.1); TOTAL BILIRUBIN 0.43 mg/dL (0.20-1.00); TOTAL PROTEIN 8.8 g/dL (6.3-8.3)
[2019-11-16 19:25] LABS: INR 1.01; PROTIME 13.4 Seconds (11.0-16.0); PTT 31.8 Seconds (22.3-41.8)
[2019-11-16] MEDS ORDERED: LEVAQUIN 750 MG/D5W 750 MG/150 ML IVPB IV ONE (20:40)
[2019-11-16] MEDS ORDERED: LEVOPHED 8 MG in D5 1/2 NS 250 ML IV SCH ×2 (21:15→22:45)
--- NOTE | 2019-11-16 21:22 | PROVIDER DOCUMENTATION ---
This chart was entered by Ana Rosa Ojeda Scribe, acting as scribe for Lopez Manuel MD. HPI-General Adult - General Chief Complaint: Syncope Stated Complaint: CP,SORE THROAT Time Seen by Provider: 11/16/19 17:31 Source: patient Allergies/Adverse Reactions: Patient Allergies Allergy/AdvReac Type Severity Reaction Status Date / Time cephalexin monohydrate * Allergy ITCHING Verified 11/16/19 17:47 [From Keflex] codeine Allergy ITCHING Verified 11/16/19 17:47 Home Medications: Home Medication List Medication Instructions Recorded Confirmed Last Taken Type Pantoprazole Sodium 40 mg PO DAILY 05/06/18 11/16/19 11/16/19 History Cyclobenzaprine [Flexeril] 1 tab PO BID PRN 07/26/19 11/16/19 07/24/19 History Gabapentin [Neurontin] 1 tab PO TID 11/16/19 11/16/19 11/16/19 History Hydrocodone/Acetaminophen [Collins 1 tab PO TID 11/16/19 11/16/19 11/16/19 History 10-325 Tablet] LISINOpril [Prinivil] 1 tab PO DAILY 11/16/19 11/16/19 11/16/19 History Methocarbamol 1 tab PO PRN PRN 11/16/19 11/16/19 Unknown History Potassium Chloride 1 tab PO DAILY 11/16/19 11/16/19 11/16/19 History - History of Present Illness -Gen Adult Nature of Presenting Problems: pt is a 34 yr old female presenting with 3 day complaint of cough, chest pain, sore throat and decreased oral intake, pt admits syncope x 1 today, unsure how long she was out, pt reports she woke up in a chair but unsure how she got there. pt denies any injury. pt admits drinking 1 pint vodka daily and takes [place] 10 for chronic back pain. Location of Pain/Injury: reports: chest Pain Radiation: reports: no radiation Quality of Pain: reports: dull Severity: reports: mild Onset/Duration: reports: 3 days ago Timing: reports: still present Context/Activities at Onset: reports: light activity Modifying Factors: improves with: nothing Associated Symptoms: reports: back/neck pain (chronic), chest pain, cough, dizziness, EENT symptoms, fatigue, loss of appetite, syncope. denies: fever/chills, genitourinary problems, headaches, nausea, shortness of breath, vomiting Similar Symptoms Previously?: No Recently seen or treated by another doctor?: No Review of Systems - Adult - REVIEW OF SYSTEMS - ADULT Constitutional: denies: chills, fever Eyes: reports: no symptoms reported Ears, Nose, Mouth & Throat: reports: throat pain. denies: ear pain, sinus problem Cardiovascular: reports: chest pain, syncope. denies: palpitations Respiratory: reports: cough. denies: dyspnea on exertion, shortness of breath Gastrointestinal: reports: abdominal pain (suprapubic pain), poor appetite. denies: diarrhea, nausea, vomiting Genitourinary: denies: dysuria, frequency, flank pain Musculoskeletal: reports: back pain (chronic) Integumentary: reports: no symptoms reported Neurological: reports: dizziness/vertigo, syncope. denies: headache/migraines Psychiatric: reports: no symptoms reported Endocrine: reports: no symptoms reported Hematologic/Lymphatic: reports: no symptoms reported Allergic/Immunologic: reports: no symptoms reported All Other Systems: Reviewed and Negative Past History - Adult - PAST MEDICAL HISTORY-ADULT Review of Records: reports: Old Records Reviewed, Nursing Assessment Review, Medications Reviewed, Social history reviewed & non-contributory. Major Childhood Illnesses: reports: denies history Cardiovascular: reports: HTN Respiratory: reports: denies history Gastrointestinal: reports: denies history Obstetrical/Gynecological: reports: denies history Genitourinary: reports: denies history Musculoskeletal: reports: denies history Neurological: reports: denies history Endocrine/Immune: reports: denies history Other Conditions: reports: denies history - PRIOR SURGERIES/PROCEDURES Surgical/Procedure History: reports: - IMMUNIZATION STATUS Childhood Immunizations: See Nurse Assessment Flu Vaccine: See Nurse Assessment - FAMILY HISTORY Family History: HTN - SOCIAL HISTORY Smoking: cigarettes Provider spent 3-5 mins advising pt. on dangers of tobacco.: Discussed manners to quit use, and f/u contacts for add'l counseling. Substance Use: alcohol Alcohol Use Frequency: every day (1pint vodka daily) Physical Exam-General - PHYSICAL EXAM-ADULT Initial Vital Signs Reviewed: Yes - CONSTITUTIONAL General Appearance: alert, no apparent distress - EYES Eyes: PERRL/EOMI - HEAD, EARS, NOSE, MOUTH & THROAT HENMT: normocephalic/atraumatic, other (slightly dry oral mucosa) - NECK Neck: non-tender, full range of motion, supple, normal inspection - RESPIRATORY Respiratory: chest non-tender, lungs clear, normal breath sounds, no respiratory distress, no accessory muscle use - CARDIOVASCULAR Cardiovascular: tachycardia, other (hypotensive) - GASTROINTESTINAL (ABDOMEN) Abdominal Exam: normal bowel sounds, non tender, soft - LYMPHATIC Lymphatic: no adenopathy - MUSCULOSKELETAL Back Exam: normal inspection, no CVA tenderness, no vertebral tenderness Extremity: normal range of motion, non-tender, normal gait, normal inspection - SKIN Integumentary: normal color, normal turgor, warm/dry - NEUROLOGIC Neurologic: grossly normal, no motor/sensory deficits - PSYCHIATRIC Psych/Mental Status: normal mood/affect, normal thought content, normal thought process, oriented x 3 Progress - PLAN OF CARE/RESULTS Progress/Plan/Lab Results: Vital Signs - 8 hr 11/16/19 17:25 11/16/19 17:43 11/16/19 18:00 Temperature 97.2 F L Pulse Rate 115 H 111 H 94 H Pulse Rate [Sitting] Pulse Rate [Standing] Pulse Rate [Supine] Respiratory Rate 18 16 14 Blood Pressure 90/56 95/56 Blood Pressure [Sitting] Blood Pressure [Standing] Blood Pressure [Supine] O2 Sat by Pulse Oximetry 98 100 100 11/16/19 18:03 11/16/19 18:05 11/16/19 18:06 Temperature Pulse Rate 98 H 103 H 112 H Pulse Rate [Sitting] 104 H Pulse Rate [Standing] 114 H Pulse Rate [Supine] 97 H Respiratory Rate 16 20 16 Blood Pressure 66/28 84/52 77/52 Blood Pressure [Sitting] 84/52 Blood Pressure [Standing] 77/52 Blood Pressure [Supine] 66/28 O2 Sat by Pulse Oximetry 99 100 100 11/16/19 18:12 Temperature Pulse Rate 106 H Pulse Rate [Sitting] Pulse Rate [Standing] Pulse Rate [Supine] Respiratory Rate 15 Blood Pressure 93/60 Blood Pressure [Sitting] Blood Pressure [Standing] Blood Pressure [Supine] O2 Sat by Pulse Oximetry 97 Orders Category Date Time Status Cardiac Monitoring DIRECTED Care 11/16/19 18:22 Active Cardiac Monitoring DIRECTED Care 11/16/19 18:25 Active Finger Stick Blood Sugar (ED) DIRECTED Care 11/16/19 18:22 Active IV Insertion ORDERED Care 11/16/19 18:25 Active Notify MD of + Sepsis Screen NOW Care 11/16/19 18:25 Active Notify Physician As Ordered Care 11/16/19 18:25 Active Saline Loc NOW Care 11/16/19 18:22 Active CHEST-PORTABLE [RAD] Stat Exams 11/16/19 18:[address] HEAD W/O CONTRAST [CT] Stat Exams 11/16/19 18:22 Ordered BLOOD CULTURE [BLDCUL] Stat Lab 11/16/19 18:25 Uncollected CBC WITH ELECTRONIC DIFF [HEME] Stat Lab 11/16/19 18:22 Uncollected COMPREHENSIVE METABOLIC PANEL [CHEM] Stat Lab 11/16/19 18:22 Uncollected LACTATE, PLASMA [CHEM] Q3H Lab 11/16/19 18:30 Uncollected LACTATE, PLASMA [CHEM] Q3H Lab 11/16/19 21:30 Uncollected LACTATE, PLASMA [CHEM] Q3H Lab 11/17/19 00:30 Uncollected PROTIME WITH INR [COAG] Stat Lab 11/16/19 18:22 Uncollected PTT [COAG] Stat Lab 11/16/19 18:22 Uncollected TROPONIN T Stat Lab 11/16/19 18:22 Uncollected URINALYSIS W/POSS RFLX CULT [URINALYSIS] Stat Lab 11/16/19 18:22 Uncollected URINE DRUG SCREEN Stat Lab 11/16/19 18:22 Uncollected 0.9% Sodium Chloride Inj [Ns] 1,000 ml Med 11/16/19 18:26 Active IV 999 mls/hr Oxygen Device Stat Oth 11/16/19 18:25 Active EKG [EKG] Stat Ther 11/16/19 17:29 Draft EKG [EKG] Stat Ther 11/16/19 18:22 Ordered Result Diagrams: 11/16/19 18:12 11/16/19 18:12 - EKG 1 Time of EKG reading by physician:: 17:36 EKG Read and Signed by:: Lopez Manuel EKG Interpretation (*Must complete 3 of following elements*): Normal Rate: 110 Rhythm: sinus tachycardia with PACs [place]: normal QRS: other (PACS) MO Interval: normal ST Wave: normal - XRAY 1 XRAY Study: Chest Impression: Normal ( Signed EXAM: CHEST-PORTABLE 11/16/2019 HISTORY: syncope TECHNIQUE: AP portable upright at 1844 COMMENT: There is curvature of the thoracic spine with convexity to the right. The inspiration is better than on 07/27/2019, otherwise are has been no significant change in the appearance of the chest. The heart size and pulmonary vascularity are within normal limits and the lungs are clear. IMPRESSION: No acute disease. Electronically signed by Porter Joseph 11/16/2019 6:47 PM 11/16/191846 Interpreting Physician: Porter Joseph MD Dictated Date/Time: 11/16/191845 cc: Lopez Manuel MD; None,PCP) - CT/MRI 1 CT Study: Head Impression: Normal (Signed EXAM: CT HEAD W/O CONTRAST 11/16/2019 HISTORY: stroke like symptoms TECHNIQUE: This exam was performed using automated exposure control, adjustment of mA or kV according to patient size, and/or use of iterative reconstruction technique. COMMENT: There is no evidence of mass effect, bleed, or abnormal extra-axial fluid collection. The calvarium is intact. The visualized paranasal sinuses are clear. Compared to 11/14/2014 there has been no significant change in the appearance of the brain. IMPRESSION: No evidence of acute intracranial disease. Electronically signed by Porter Joseph 11/16/2019 6:46 PM 11/16/191845 Interpreting Physician: Porter Joseph MD Dictated Date/Time: 11/16/191842 cc: Lopez Manuel MD; None,PCP) - CONSULTS/PCP/HOSPITALIST Notification #1 *Consult/PCP/Hospitalist*: Dr Romo Time Discussed: 21:22 Consult Disposition: Admit (he does not want levofed. Wants more fluid up to 4 liters) Departure - Departure Date of Disposition Decision: 11/16/19 Time of Disposition Decision: 21:20 DIAGNOSIS: Acute viral syndrome, Volume depletion, Transaminitis, LORENE (acute kidney injury) UTI (urinary tract infection) Qualifiers: Urinary tract infection type: site unspecified Hematuria presence: without hematuria Qualified Code(s): N39.0 - Urinary tract infection, site not specified Disposition: ADMITTED INPATIENT 09 Certified Medical Emergency: Emergent Condition: Fair Referrals and Follow-Ups: None,PCP [Primary Care Provider] - - Critical Care Note This patient required my direct & personal management of CC.: No Attestation - Physician/ SAYDA Attestation Patient care was provided by Advanced Practice Provider:: No The physician spent face to face time with patient:: Yes Advanced Practice Provider documentation review:: Supervising physician onsite and consulted in the evaluation and care of this patient. The physician did have a face to face encounter with the patient. This chart was documented by the indicated scribe, (Ana Rosa Ojeda, Kristina) and accurately reflects the services I performed and decisions made by me, Lopez Reynoso MD, as attested by the provider's signature.
[2019-11-16] MEDS ORDERED: ATIVAN IV PRN (22:45)
[2019-11-16] MEDS ORDERED: ZOFRAN IV PRN (22:45)
[2019-11-16] MEDS: NS 1,000 ML IV SCH (22:45)
[2019-11-16] MEDS ORDERED: TYLENOL PO PRN (22:45)
[2019-11-16 23:25] LABS: MAGNESIUM 1.7 mg/dL (1.5-2.7); PHOSPHORUS 3.2 mg/dL (2.7-4.5)
[2019-11-17] MEDS: NS 1,000 ML IV SCH ×2 (10:00→16:16)
[2019-11-17 11:10] LABS: EOS# 0.03 X1000 (0.0-0.7); HEMATOCRIT 33.9 % (37.0-47.0); HEMOGLOBIN 11.1 g/dL (12.0-16.0); LYMPH# 0.84 X1000 (1.2-3.4); LYMPH% 28.2 % (20.5-51.1); MCH 34.2 PG (27-31); MCHC 32.7 g/dL (33-37); MCV 104.3 FL (81-99); MONO# 0.21 X1000 (0.11-0.59); NEUT% 63.8 % (42.2-75.2); PLT 96 X1000 (130-400); RBC 3.25 XMIL (4.2-5.4); RDW 13.3 % (11.5-14.5); WBC 2.98 X1000 (4.8-10.8)
[2019-11-17 11:32] LABS: CALCIUM 8.8 mg/dL (8.8-10.2); CREATININE 1.4 mg/dL (0.5-0.9); POTASSIUM 4.1 mmol/L (3.5-5.1)
[2019-11-17] MEDS ORDERED: VANCOMYCIN IV PER PHARMACY MISC SCH (12:15)
--- NOTE | 2019-11-17 12:20 | PROGRESS NOTE ---
DATE: 11/17/2019 SUBJECTIVE: This morning Ms. Rooney refers to be doing a whole lot better. I saw her in the emergency room. She has been admitted, but still pending bed space. Ms. Rooney refers that she has been up and uses the restroom multiple times. She does not feel anymore dizzy. OBJECTIVE: Vital Signs: Blood pressure 103/71, pulse 86, respirations 16, and temperature 97.2. General: Ms. Rooney is a 34-year-old female. She is in bed in no distress. HEENT: Mucosa is pink and dry. Anicteric. Acyanotic. Neck: Supple. Chest: Good air entry bilaterally. There are no crepitations. No rhonchi. Cardiovascular: Regular rate and rhythm. There are no murmurs. No rubs. No gallops. Abdomen: Soft, nontender. Bowel sounds present. Extremities: No pedal edema. STENOTYPIST: Patient is awake, alert, and oriented. LABORATORY DATA: CBC shows pancytopenia with remarkable microcytosis. Chemistry is also reviewed. Creatinine is down to 1.4. IMAGING STUDIES: Chest x-ray on admission showed no acute disease. A CT scan of the head showed no evidence of acute intracranial pathology. CURRENT MEDICATIONS: All have been reviewed. ASSESSMENT: 1. Altered mental status on admission presumably from metabolic and drug encephalopathy. 2. Hypotension on admission presumably drug-induced. 3. Chronic pain syndrome with multiple psychotropic medications including Flexeril, gabapentin, Palisades, and methocarbamol. 4. Acute kidney injury secondary to intravascular depletion improved. 5. Lactic acidosis resolved. 6. Pancytopenia with microcytosis secondary to chronic alcohol use. 7. Alcohol use and abuse. Patient has been counseled. The patient presented with alcohol level of 83, which is remarkably high. 8. Folate deficiency on previous lab studies. We will start the patient on replacement. 9. Mild odynophagia/dysphagia, presumably from alcohol-induced esophagitis. The patient will be started on PPI and monitor this. We will consult GI if the patient continues to be remarkably symptomatic. cc: Joel Garrido MD MTDD
[2019-11-17] MEDS: FOLIC ACID PO SCH (12:51)
[2019-11-17] MEDS: PROTONIX PO SCH (12:52)
[2019-11-17] MEDS ORDERED: VANCOMYCIN 2.1 GM in NS 500 ML IV ONE (14:30)
[2019-11-17] MEDS: VITAMIN B-1 PO SCH (16:16)
--- NOTE | 2019-11-17 21:08 | HISTORY AND PHYSICAL ---
CHIEF COMPLAINT: Syncope. HISTORY OF PRESENT ILLNESS: This is a 34-year-old female who stated she has had cough for three days, some sore throat, chest pain related to cough. She admits to a syncopal episode today. She was unsure how long she was out. She woke up in a chair. She did not fall. She did not hit her head. She is a daily drinker and takes chronic opioids. She drinks in excess of a pint of alcohol a day, sometimes consuming an entire fifth. Her laboratory data was obtained in the emergency room which showed her to be in acute kidney injury with volume depletion. She did have alcohol and opiates in her system. She will be admitted to ICU related to hypotension and possible need for pressors for further evaluation and treatment. PAST MEDICAL HISTORY: 1. Tobacco abuse. 2. Acute kidney injury. 3. Hypertension. 4. Chronic pain syndrome with chronic opioids. PREVIOUS SURGICAL HISTORY: C section x3. SOCIAL HISTORY: Smokes half a pack of cigarettes per day, has for 15+ years. Drinks about a pint to a fifth of alcohol daily. Takes chronic opiates but denies any illicit drug use. FAMILY HISTORY: Could not be reviewed related to patient's mentation. She denied any chronic health issues, however she is somewhat confused. ALLERGIES: Codeine and Keflex. HOME MEDICATIONS: Flexeril 10 mg p.o. b.i.d., Neurontin 300 mg p.o. t.i.d., Mcbrides 10 p.o. t.i.d., lisinopril 20 p.o. daily, methocarbamol 500 mg p.o. p.r.n., potassium 20 mEq p.o. daily, pantoprazole 40 mg p.o. daily. REVIEW OF SYSTEMS: Fourteen-point review of systems conducted with the patient. Pertinent positives listed above in the HPI. All other systems reviewed and found to be negative. However, please note that she altered with metabolic encephalopathy, so this may not be an all encompassing list. PHYSICAL EXAMINATION: VITAL SIGNS: Temperature 97.2, pulse 88 to 115, sinus rhythm and sinus tachycardia, blood pressure 97/61, oxygen saturation 100% on room air. GENERAL: A 34-year-old female lying in the ER stretcher. She is slightly altered. She is oriented to person and place, disoriented to time, and somewhat oriented to situation. She is in no acute distress. HEENT: Head is atraumatic, normocephalic. Pupils equal, round, reactive to light. Extraocular eye movements intact. Sclera is anicteric. Conjunctivae pink. Oral mucosa is dry. NECK: Supple. No JVD. No thyromegaly. Trachea is midline. No cervical lymphadenopathy. CARDIAC: S1, S2 appreciated. She is tachycardic. No murmurs, gallops, rubs. LUNGS: Clear to auscultation bilaterally. No rhonchi, wheezes, rales. Symmetric rise and fall with respirations. ABDOMEN: Soft, nondistended, nontender. Bowel sounds present all four quadrants, normoactive. No pulsatile mass. No organomegaly. EXTREMITIES: No clubbing, cyanosis or edema. 1+ pedal pulses bilaterally. GENITOURINARY: No bladder distention. Otherwise deferred. NEUROLOGICAL: Oriented to person and place, somewhat to situation. Disoriented to time. She does have mild asterixis on examination, either that or a baseline tremor related to alcohol. Cranial nerves II-XII appear otherwise to be grossly intact. DIAGNOSTIC DATA: CT of the head with no acute intracranial process. Chest x-ray with no acute disease. LABORATORY DATA: WBC 5.54. Hemoglobin 13.2. Hematocrit 39.2. Platelet count 136,000. Sodium 132. Potassium 3.9. Chloride 88. Carbon dioxide 18. BUN 40. Creatinine 4. Glucose 76. Urine unremarkable. Toxicology screen positive for opiates. Serum alcohol 83. ASSESSMENT: 1. Metabolic or toxic encephalopathy secondary to drugs and alcohol. 2. Acute kidney injury. 3. Volume depletion. 4. Alcohol abuse. 5. Chronic narcotic as well as multiple psychotropic drugs, daily use. 6. Questionable viral syndrome. PLAN: Will bolus the patient with normal saline in the emergency room. Will continue to hydrate with IV normal saline. Will add Levophed to patient's medication profile so she can be started to maintain a mean arterial pressure greater than 60. Will hold all pain medication and psychotropic medications, including her Flexeril, Neurontin, and methocarbamol as well as her Mcbrides. Continue to assess patient's mental status. Will recheck laboratory data tomorrow morning. Further recommendations per patient's clinical course. Dictated by DONOVAN Centeno for Les Romo MD cc: DONOVAN Centeno MD
[2019-11-18] MEDS: NS 1,000 ML IV SCH ×2 (03:15→09:25)
[2019-11-18 08:01] LABS: EOS# 0.02 X1000 (0.0-0.7); EOS% 0.9 % (0.0-10.0); HEMATOCRIT 30.4 % (37.0-47.0); LYMPH# 0.78 X1000 (1.2-3.4); LYMPH% 34.2 % (20.5-51.1); MCH 34.2 PG (27-31); MCHC 32.9 g/dL (33-37); MCV 104.1 FL (81-99); MONO# 0.17 X1000 (0.11-0.59); MONO% 7.5 % (1.7-9.3); MPV 10.4 FL (7.4-10.4); NEUT# 1.31 X1000 (1.4-6.5); NEUT% 57.4 % (42.2-75.2); PLT 83 X1000 (130-400); RBC 2.92 XMIL (4.2-5.4); WBC 2.28 X1000 (4.8-10.8)
[2019-11-18 08:03] LABS: INR 1.07; PROTIME 14.1 Seconds (11.0-16.0)
[2019-11-18 08:46] LABS: AGAP 13; ALB/GLOB RATIO 1.1; ALBUMIN 3.6 g/dL (3.5-5.0); ALKALINE PHOSPHATASE 55 U/L (32-104); BUN 23 mg/dL (8-22); CHLORIDE 104 mmol/L (98-107); COSMO 277; CREATININE 0.7 mg/dL (0.5-0.9); ESTIMATED GFR > 60; GLUCOSE 90 mg/dL (70-104); GOT 83 U/L (10-30); GPT 39 U/L (10-36); POTASSIUM 4.1 mmol/L (3.5-5.1); SODIUM 137 mmol/L (136-145); TCO2 20 mmol/L (25-35); TOTAL BILIRUBIN 0.49 mg/dL (0.20-1.00); TOTAL PROTEIN 6.9 g/dL (6.3-8.3)
[2019-11-18] MEDS: PROTONIX PO SCH (09:25)
[2019-11-18] MEDS: VITAMIN B-1 PO SCH (09:25)
[2019-11-18] MEDS: THERA M PLUS PO SCH (09:25)
[2019-11-18] MEDS: FOLIC ACID PO SCH (09:25)
[2019-11-18] MEDS: VANCOMYCIN 1.9 GM in NS 500 ML IV SCH (13:50)
[2019-11-18] MEDS ORDERED: VANCOMYCIN 1.9 GM in NS 500 ML IV SCH (14:30)
--- NOTE | 2019-11-18 15:25 | PROGRESS NOTE ---
DATE: 11/18/2019 SUBJECTIVE: This morning Ms. Rooney refers to be doing well. She denies any complaints. According to her, the sore throat is improved, and she has been tolerating some of her diet. OBJECTIVE: Vital Signs: Blood pressure is 122/85, pulse of 75, respirations 20, temperature 98.3 degrees. General: Ms. Rooney is a 34-year-old female. She is in bed, in no distress. HEENT: Mucosa is pink and moist. Anicteric. Acyanotic. Neck: Supple. Chest: Clear to auscultation. No crepitations. No rhonchi. Cardiovascular: Regular rate and rhythm. No murmurs, no rubs, no gallops. Gastrointestinal: The abdomen is soft, nontender. Bowel sounds present. Extremities: No pedal edema. Central Nervous System: Patient is awake, alert, oriented. There is no focal deficit. LABORATORY DATA: CBC is 2.28, hemoglobin is 10, platelet count of 83,000. reviewed. Creatinine is down to 0.7. AST and ALT have improved. So far, blood culture 1 out of 2 showing gram-positive cocci. ASSESSMENT: 1. Altered mental status on presentation with no focalization, presumed to be metabolic and drug- related encephalopathy. Mentation has significantly improved. 2. Hypotension on admission secondary to volume depletion and drug-induced, resolved. 3. Chronic pain syndrome with multiple psychotropic medications. 4. Acute kidney injury, resolved. 5. Pancytopenia with macrocytosis secondary to chronic alcohol use. 6. Alcohol use and abuse. Patient has been counseled. 7. Folate deficiency. The patient is on replacement. 8. Mild odynophagia, resolved. 9. Gram-positive cocci 1 out of 2, unsure if this is a contaminant. We will be pending the final identification and sensitivity. SUMMARY/PLAN: In general, I think Ms. Rooney is doing a lot better. Creatinine has normalized. Liver enzymes are trending down, and she is not hypotensive any longer. One of her blood cultures is showing gram-positive cocci. We are still pending the ID and sensitivity, and hopefully, we can discharge her. cc: Joel Garrido MD [facility] HOSPITALAmari
[2019-11-18] MEDS: NORCO-5 PO PRN ×2 (15:36→21:23)
[2019-11-19] MEDS: VANCOMYCIN 1.9 GM in NS 500 ML IV SCH (06:32)
[2019-11-19 08:18] VITALS: BP 118/75
[2019-11-19 08:24] LABS: AGAP 11; ALBUMIN 3.4 g/dL (3.5-5.0); BUN 11 mg/dL (8-22); CALCIUM 9.2 mg/dL (8.8-10.2); CHLORIDE 103 mmol/L (98-107); COSMO 269; CREATININE 0.6 mg/dL (0.5-0.9); ESTIMATED GFR > 60; GLUCOSE 88 mg/dL (70-104); POTASSIUM 3.8 mmol/L (3.5-5.1); SODIUM 135 mmol/L (136-145); TCO2 21 mmol/L (25-35)
[2019-11-19 08:28] LABS: HEMATOCRIT 30.8 % (37.0-47.0); HEMOGLOBIN 10.3 g/dL (12.0-16.0); MCH 34.4 PG (27-31); MCHC 33.4 g/dL (33-37); MPV 10.6 FL (7.4-10.4); RBC 2.99 XMIL (4.2-5.4); RDW 12.7 % (11.5-14.5); WBC 2.27 X1000 (4.8-10.8)
[2019-11-19] MEDS: PROTONIX PO SCH (09:26)
[2019-11-19] MEDS: FOLIC ACID PO SCH (09:26)
[2019-11-19] MEDS: THERA M PLUS PO SCH (09:26)
[2019-11-19] MEDS: VITAMIN B-1 PO SCH (09:26)
[2019-11-19] MEDS: NORCO-5 PO PRN (10:38)
[2019-11-19] MEDS ORDERED: VANCOMYCIN 1.9 GM in NS 500 ML IV SCH (13:00)
--- NOTE | 2019-11-20 14:23 | DISCHARGE SUMMARY ---
ADMISSION DATE: 11/16/2019 DISCHARGE DATE: 11/19/2019 DISPOSITION: Home. FOLLOWUP: The patient's PCP. CONSULTATIONS DURING THIS ADMISSION: None. IMAGING STUDIES OF SIGNIFICANCE: A chest x-ray showed no acute disease. A head CT showed no evidence of acute intracranial pathology. ADMISSION DIAGNOSES: 1. Metabolic encephalopathy. 2. Acute kidney injury. 3. Questionable viral syndrome. 4. Chronic narcotic use. DIAGNOSES AT THE TIME OF DISCHARGE: 1. Altered mental status on presentation secondary to metabolic and drug-induced encephalopathy. 2. Hypotension secondary to volume depletion and drug-induced. 3. Chronic pain syndrome with multiple psychotropic medications. 4. Acute kidney injury, resolved. 5. Pancytopenia with microcytosis secondary to chronic alcohol abuse. 6. Alcohol use and abuse. The patient has been counseled. 7. Folate deficiency, replaced. Gram-positive cocci on one out of two, unsure if it is contaminant. The lab seems to suggest that this is a Streptococcus. The patient is on Levaquin. Repeat blood cultures were done, which are still pending. DISCHARGE MEDICATIONS: 1. Pantoprazole 40 mg p.o. daily. 2. Flexeril 1 tablet b.i.d. 3. Gabapentin 300 three times per day. 4. Morton 10 mg 3 times per day. 5. Methocarbamol 500 p.r.n. 6. Folic acid 1 mg p.o. daily. 7. Levofloxacin 500 p.o. daily. 8. Multivitamin. 9. Thiamin. 10. The lisinopril has been discontinued. PRESENTING COMPLAINT: Syncope. HISTORY OF PRESENTING COMPLAINT: Ms. Rooney is a 34-year-old female who seems to have some cough of about 3 days, came in with syncopal episode. She woke up in a chair, which she did not intend to, did not have any injury to the head. Ms Rooney drinks alcohol on a daily basis and also takes chronic opioids. Upon presentation, she was found to be remarkably dehydrated and with acute renal failure. She was initially admitted to the ICU because of hypotension. HOSPITAL COURSE: Ms. Rooney was admitted to the ICU, was fluid resuscitated. Creatinine improved from 4 to 1.4 the following day. Her mentation significantly improved. Her urine toxicology was positive for opioids and also significantly high on alcohol. She was actually at level of intoxication at the time. During the hospital course, Ms. Rooney's mentation resolved. She was started back on some of her home medications. She has, however, been advised to address the need for all those medications with her primary care. We are not sure how she gets them. Ms. Rooney's blood culture one out of two came back positive for gram-positive cocci. Yesterday when I called the lab, they thought that this was coagulase negative and that it was probably a Streptococcus. She has been afebrile throughout her hospital course. She does not have any leukocytosis. She actually had low platelet count as well as WBCs low. I think she is slightly pancytopenic because of the alcohol. This morning Ms. Rooney is clinically stable. We think she can be discharged. She has been advised repeatedly on alcohol cessation. TIME SPENT: The time spent for discharge is 35 minutes. cc: Joel Garrido MD Blood culture shows strep oralis sensitive to the levofloxacin. Repeat blood culture was negative. JANI
== END 2019-11-19 11:17 | disposition home or self-care (01) | DRG 682 ==
LOC: ED 17:22 → SUATTDRO 22:31 → EDIPHOLD 22:31 → ICU 11-17 03:43 → EDIPHOLD 11-17 06:15 → 3N 11-17 13:33
PROVIDERS: ATTEND Internal Medicine